=== PATIENT | female | born 1975 | race Caucasian/White ===

== ENCOUNTER 2021-05-27 04:45 | Day surgery (SDC) | payer BC, OTHER ==
[2021-05-23 15:52] VITALS: BMI 27.4
[2021-05-27] MEDS ORDERED: PROMETHAZINE HCL 25 MG/1 ML VIAL IVPB PRN (09:50)
[2021-05-27] MEDS ORDERED: oxyCODONE HCL 5 MG TABLET PO PRN (09:50)
[2021-05-27] MEDS ORDERED: ONDANSETRON 4 MG/2 ML VIAL IVPUSH PRN (09:50)
[2021-05-27] MEDS ORDERED: LACTATED RINGERS SOLUTION 1,000 ML IV SCH (10:00)
[2021-05-27] MEDS ORDERED: MIDAZOLAM HCL 2 MG/2 ML SINGLE DOSE VIAL ONE (10:06)
[2021-05-27] MEDS ORDERED: PROPOFOL 20 ML ONE ×2 (10:06)
[2021-05-27] MEDS ORDERED: LIDOCAINE HCL/PF 2% SDV 5ML VIAL ONE (10:38)
[2021-05-27] MEDS ORDERED: KETOROLAC TROMETHAMINE 30 MG/1 ML VIAL ONE (10:42)
[2021-05-27] MEDS ORDERED: LIDOCAINE HCL 1%, 10 MG/ML (20ML VIAL) NR ONE (10:49)
[2021-05-27] MEDS ORDERED: BUPIVACAINE HCL/PF 0.5% (5MG/ML) 10 ML VIAL IJ ONE (10:49)
[2021-05-27] MEDS ORDERED: ELECTROLYTE-148 SOLN 1,000 ML IV SCH (11:30)
[2021-05-27 13:00] VITALS: TEMP 97.5
[2021-05-27 14:58] VITALS: BP 134/70; PULSE 70
== END 2021-05-27 14:00 | disposition home or self-care (01) ==
LOC: JASU-SURG 04:45
PROVIDERS: ATTEND Urology
PROC: 0UBL0ZZ Excision of Vestibular Gland, Open Approach (ICD-10-PCS; principal; 2021-05-27 11:00)
DX: N36.8 Other specified disorders of urethra (principal)
CPT/HCPCS: 88304-TC; 94760

== ENCOUNTER 2022-02-20 09:52 | Day surgery (SDC) | payer OTHER ==
[2022-02-17 15:17] VITALS: BMI 27.4
[2022-02-20 12:36] VITALS: TEMP 97.2
[2022-02-20 12:56] VITALS: BP 149/82; PULSE 75
== END 2022-02-20 13:05 | disposition home or self-care (01) ==
LOC: FASU-ENDO 09:52
PROVIDERS: ATTEND Internal Medicine Gastroenterology
PROC: 0DJD8ZZ Inspection of Lower Intestinal Tract, Via Natural or Artificial Opening Endoscopic (ICD-10-PCS; principal; 2022-02-20 11:34)
DX: Z12.11 Encounter for screening for malignant neoplasm of colon (principal); K64.1 Second degree hemorrhoids

== ENCOUNTER 2022-04-03 09:29 | Day surgery (SDC) | payer OTHER ==
[2022-04-01 14:09] VITALS: BMI 27.4
[2022-04-03 11:48] VITALS: TEMP 97.8
[2022-04-03 12:24] VITALS: BP 109/71; PULSE 72
== END 2022-04-03 12:26 | disposition home or self-care (01) ==
LOC: FASU-ENDO 09:29
PROVIDERS: ATTEND Internal Medicine Gastroenterology
PROC: 0DJD8ZZ Inspection of Lower Intestinal Tract, Via Natural or Artificial Opening Endoscopic (ICD-10-PCS; principal; 2022-04-03 11:05)
DX: Z12.11 Encounter for screening for malignant neoplasm of colon (principal); K57.30 Diverticulosis of large intestine without perforation or abscess without bleeding